=== PATIENT | female | born 1965 | race African-American/Black ===

== ENCOUNTER 2022-01-16 13:17 | Inpatient (IN) ==
[2022-01-16 14:01] LABS: ABG Base Excess -16.6 MMOL/L (-2.5-2.5); ABG HCO3 11.7 MMOL/L (20-26); ABG Oxygen Saturation 96.2 % (95-100); ABG PCO2 22.5 MM HG (35-48); ABG TCO2 9.2 MMOL/L (23-27)
[2022-01-16] MEDS ORDERED: LACTATED RINGERS 1,000 ML IV ONE ×3 (14:21→15:40)
[2022-01-16 14:46] LABS: INR 1.3; PT Patient Result 14.6 SECS (10.5-12.0)
[2022-01-16 15:05] LABS: Albumin 2.4 G/DL (3.4-5.0); Bilirubin,Total 2.9 MG/DL (0.20-1.00); Calcium 9.5 MG/DL (8.5-10.1); Osmolality,Calculated 272.2 MOS/KG (273-304); Potassium 5.5 MMOL/L (3.5-5.1); Total Protein 7.8 G/DL (6.4-8.2)
[2022-01-16 15:11] LABS: Basophils # 0.1 10*3/uL (0.0-0.2); Basophils % 0.2 % (0.0-0.8); Eosinophils # 0.6 10*3/uL (0.0-0.87); Eosinophils % 1.7 % (0.00-10.9); Hematocrit 31.5 VOL% (35.7-47.0); Hemoglobin 8.4 GM/DL (12.0-16.0); Immature Granulocytes % 2.7 %; Lymphocytes # 1.7 10*3/uL (1.4-4.0); Lymphocytes % 5.1 % (21.3-54.2); Mean Corpuscular HGB Conc 26.7 GM/DL (32-36); Mean Corpuscular Volume 71.4 FL (87-102); Monocytes % 5.5 % (1.7-12.7); Neutrophils % 84.8 % (38.7-73.9); Platelet Count 517 T/CUMM (130-400); Red Blood Count 4.41 MC/CUMM (3.8-5.5); Red Cell Distribution Width 21.1 % (9.3-17.3); White Blood Count 33.8 T/CUMM (4-12)
[2022-01-16] MEDS ORDERED: PIPERACILLIN/TAZOBACTAM 3,375 MG in SODIUM CHLORIDE 0.9% 100 ML IV STA (15:12)
[2022-01-16] MEDS ORDERED: VANCOMYCIN INJ 1,250 MG in SODIUM CHLORIDE 0.9% 250 ML IV STA (15:17)
[2022-01-16] MEDS ORDERED: VANCOMYCIN 1,000 MG VIAL ONE (15:24)
[2022-01-16 16:17] LABS: Band Neutrophils 4 % (0-10); Eosinophils 2 % (0-10); Lymphocytes 13 % (20-55); Metamyelocytes 3 %; Nucleated Red Blood Cells 1 (0-5); Segmented Neutrophils 73 % (50-85); Total Cells Counted 100
[2022-01-16 16:18] LABS: Hypochromia 1+; Microcytosis 1+; Schistocytes Slight
[2022-01-16 16:19] LABS: Burr Cells 1+; Platelet Estimate Increased
[2022-01-16] MEDS ORDERED: SODIUM BICARBONATE 10 MEQ/10 ML SYRINGE IV ONE (16:29)
[2022-01-16] MEDS ORDERED: SODIUM BICARBONATE 50 MEQ/50 ML VIAL IV ONE (16:31)
[2022-01-16] MEDS ORDERED: SODIUM CHLORIDE 0.9% 1,000 ML IV STA (16:36)
[2022-01-16] MEDS ORDERED: ALBUTEROL 2.5 MG/3 ML NEB RESP TX PRN (16:55)
[2022-01-16] MEDS ORDERED: ONDANSETRON 4 MG/2 ML VIAL IV PRN (16:57)
[2022-01-16] MEDS ORDERED: ACETAMINOPHEN 325 MG TABLET PO PRN (16:57)
[2022-01-16] MEDS ORDERED: HEPARIN DRIP 25,000 UNITS/500 ML PREMIX IV SCH (17:00)
[2022-01-16] MEDS ORDERED: SODIUM BICARBONATE 50 MEQ/50 ML VIAL IV STA (17:04)
[2022-01-16 18:08] LABS: Bacteria,Urine Few /HPF (Few); Blood, Urine Moderate mg/dL (Negative); Glucose,Urine (UA) Negative (Negative); Hyaline Casts,Urine 178 /LPF (0-3); Ketones,Urine Negative (Negative); Mucus,Urine Occasional /LPF (Occasional); Nitrite,Urine Negative (Negative); Protein,Urine 100 MG/DL; RBC,Urine 29 /HPF (0-4); Squamous Epithelial Cell,Urine Occasional /HPF (0-10); Transitional Epi Cells,Urine Moderate /HPF (<1); Urine Appearance CLOUDY (Clear); Urine Color Amber (Yellow); Urine Specific Gravity 1.021 (1.001-1.035)
[2022-01-16 18:11] LABS: Bilirubin,Urine Small mg/dL (Negative)
[2022-01-16] MEDS: methylPREDNISolone SOD SUC 40 MG/1 ML VIAL IV SCH (18:23)
[2022-01-16] MEDS: PANTOPRAZOLE 40 MG VIAL IV SCH (18:23)
[2022-01-16] MEDS: SODIUM BICARB INJ 150 MEQ in DEXTROSE 5% 1,000 ML IV SCH (18:43)
[2022-01-16 18:47] LABS: Barbiturates Screen,Urine Negative (Negative); Benzodiazepines Screen,Urine Negative (Negative); Cannabinoid Screen,Urine Negative (Negative); Opiate Screen,Urine Negative (Negative); Phencyclidine Screen,Urine Negative (Negative)
[2022-01-16] MEDS: MORPHINE 4 MG/1 ML VIAL IV PRN (18:54)
[2022-01-16] MEDS: ALBUTEROL/IPRATROPIUM 3 ML NEB RESP TX SCH (19:00)
[2022-01-17] MEDS: ALBUTEROL/IPRATROPIUM 3 ML NEB RESP TX SCH ×4 (00:30→19:07)
[2022-01-17] MEDS: methylPREDNISolone SOD SUC 40 MG/1 ML VIAL IV SCH ×3 (01:27→17:03)
[2022-01-17 03:47] LABS: ABG Base Excess -12.2 MMOL/L (-2.5-2.5); ABG HCO3 14.7 MMOL/L (20-26); ABG Oxygen Saturation 98.9 % (95-100); ABG PCO2 29.7 MM HG (35-48); ABG PH 7.272 (7.35-7.45)
[2022-01-17] MEDS: MORPHINE 4 MG/1 ML VIAL IV PRN (04:21)
[2022-01-17] MEDS: PIPERACILLIN/TAZOBACTAM 3,375 MG in SODIUM CHLORIDE 0.9% 100 ML IV SCH ×2 (04:21→16:45)
[2022-01-17] MEDS: SODIUM BICARB INJ 150 MEQ in DEXTROSE 5% 1,000 ML IV SCH ×3 (04:44→22:39)
[2022-01-17 05:08] LABS: Albumin 1.8 G/DL (3.4-5.0); Bilirubin,Total 2.6 MG/DL (0.20-1.00); Calcium 7.6 MG/DL (8.5-10.1); Osmolality,Calculated 286.4 MOS/KG (273-304); Potassium 4.5 MMOL/L (3.5-5.1); Total Protein 6.1 G/DL (6.4-8.2)
[2022-01-17 05:11] LABS: % Iron Saturation 7.9 % (18-50); Ferritin 132.6 ng/mL (8-252)
[2022-01-17 05:16] LABS: Basophils # 0.1 10*3/uL (0.0-0.2); Basophils % 0.1 % (0.0-0.8); Eosinophils # 0.1 10*3/uL (0.0-0.87); Eosinophils % 0.3 % (0.00-10.9); Immature Granulocytes % 0.8 %; Immature Granulocytes Absolute 0.28 #; Lymphocytes # 1.3 10*3/uL (1.4-4.0); Lymphocytes % 3.7 % (21.3-54.2); Mean Corpuscular Volume 70.1 FL (87-102); Mean Platelet Volume 10.6 FL (9.6-12.0); Monocytes % 5.5 % (1.7-12.7); NRBC # 0.07 10*3/uL; Neutrophils % 89.6 % (38.7-73.9); Platelet Count 418 T/CUMM (130-400); Red Blood Count 3.28 MC/CUMM (3.8-5.5); Red Cell Distribution Width 19.9 % (9.3-17.3); White Blood Count 34.9 T/CUMM (4-12)
[2022-01-17 05:19] LABS: Hemoglobin 6.2 GM/DL (12.0-16.0)
[2022-01-17] MEDS ORDERED: SODIUM CHLORIDE 0.9% 1,000 ML IV PRN (05:26)
[2022-01-17 05:28] LABS: Band Neutrophils 12 % (0-10); Eosinophils 1 % (0-10); Hypochromia 2+; Lymphocytes 4 % (20-55); Microcytosis 1+; Platelet Estimate Adequate; Segmented Neutrophils 77 % (50-85); Total Cells Counted 100
[2022-01-17 05:40] LABS: Hepatitis B Surface Ag Quant 0.13 Index; Hepatitis B Surface Ag Result Non-Reactive (NonReactive); Hepatitis C Virus Ab Quant 0.06 Index; Hepatitis C Virus Ab Result Non-Reactive (NonReactive)
[2022-01-17] MEDS ORDERED: CALCIUM CHLORIDE 1,000 MG/10 ML VIAL IV ONE (10:10)
[2022-01-17] MEDS ORDERED: fentaNYL 100 MCG/2 ML VIAL ONE (10:10)
[2022-01-17] MEDS ORDERED: MIDAZOLAM 2 MG/2 ML VIAL ONE ×2 (10:10→11:52)
[2022-01-17] MEDS ORDERED: ROCURONIUM 50 MG/5 ML VIAL IV ONE (10:10)
[2022-01-17] MEDS ORDERED: SUCCINYLCHOLINE 200 MG/10 ML VIAL ONE (10:10)
[2022-01-17] MEDS ORDERED: propofoL 200 MG/20 ML VIAL IV ONE (10:10)
[2022-01-17] MEDS ORDERED: SEVOFLURANE 1 UNIT/15 MINUTE INH ONE (10:10)
[2022-01-17] MEDS ORDERED: ALBUMIN 5% 25.0 GM/500 ML VIAL IV ONE (10:14)
[2022-01-17 16:10] LABS: ABG Base Excess -6.7 MMOL/L (-2.5-2.5); ABG HCO3 22.9 MMOL/L (20-26); ABG PO2 199.6 MM HG (80-95); ABG TCO2 25.1 MMOL/L (23-27); Allen Test Positive; Pt O2 Delivery Device Ventilator
[2022-01-17 16:13] LABS: ABG PCO2 72.1 MM HG (35-48); ABG PH 7.119 (7.35-7.45)
[2022-01-17 16:58] LABS: Calcium 7.6 MG/DL (8.5-10.1); Osmolality,Calculated 288.5 MOS/KG (273-304); Potassium 4.9 MMOL/L (3.5-5.1)
[2022-01-17] MEDS: PANTOPRAZOLE 40 MG VIAL IV SCH (17:02)
[2022-01-17 17:16] LABS: Hematocrit 28.7 VOL% (35.7-47.0); Hemoglobin 8.2 GM/DL (12.0-16.0)
[2022-01-17 17:39] LABS: ABG Base Excess -5.1 MMOL/L (-2.5-2.5); ABG HCO3 20.2 MMOL/L (20-26); ABG PCO2 46.2 MM HG (35-48); ABG PH 7.277 (7.35-7.45); ABG TCO2 20.4 MMOL/L (23-27)
[2022-01-17] MEDS: MIDAZOLAM 100 MG in SODIUM CHLORIDE 0.9% 80 ML IV PRN (20:05)
[2022-01-18] MEDS: ALBUTEROL/IPRATROPIUM 3 ML NEB RESP TX SCH ×4 (00:03→20:40)
[2022-01-18] MEDS: methylPREDNISolone SOD SUC 40 MG/1 ML VIAL IV SCH ×3 (01:19→20:58)
[2022-01-18] MEDS: SODIUM BICARB INJ 150 MEQ in DEXTROSE 5% 1,000 ML IV SCH ×3 (02:30→15:59)
[2022-01-18 03:32] LABS: ABG Base Excess 0.4 MMOL/L (-2.5-2.5); ABG HCO3 24.4 MMOL/L (20-26); ABG Oxygen Saturation 92.4 % (95-100); ABG PCO2 36.5 MM HG (35-48); ABG PH 7.443 (7.35-7.45); ABG PO2 71.8 MM HG (80-95); ABG TCO2 25.5 MMOL/L (23-27)
[2022-01-18 04:08] LABS: Calcium 7.1 MG/DL (8.5-10.1); Osmolality,Calculated 294.4 MOS/KG (273-304); Potassium 4.7 MMOL/L (3.5-5.1)
[2022-01-18 04:17] LABS: Basophils # 0.1 10*3/uL (0.0-0.2); Basophils % 0.3 % (0.0-0.8); Eosinophils # 0.1 10*3/uL (0.0-0.87); Eosinophils % 0.4 % (0.00-10.9); Hemoglobin 7.7 GM/DL (12.0-16.0); Lymphocytes # 1.6 10*3/uL (1.4-4.0); Lymphocytes % 6.3 % (21.3-54.2); Mean Corpuscular HGB Conc 29.6 GM/DL (32-36); Mean Corpuscular Volume 71.8 FL (87-102); Mean Platelet Volume 10.8 FL (9.6-12.0); Monocytes % 7.9 % (1.7-12.7); NRBC # 0.47 10*3/uL; Neutrophils % 81.1 % (38.7-73.9); Platelet Count 268 T/CUMM (130-400); Red Blood Count 3.62 MC/CUMM (3.8-5.5); Red Cell Distribution Width 20.8 % (9.3-17.3); White Blood Count 25.3 T/CUMM (4-12)
[2022-01-18] MEDS: PIPERACILLIN/TAZOBACTAM 3,375 MG in SODIUM CHLORIDE 0.9% 100 ML IV SCH ×2 (04:24→16:15)
[2022-01-18 04:32] LABS: Band Neutrophils 12 % (0-10); Eosinophils 1 % (0-10); Hypochromia 1+; Lymphocytes 5 % (20-55); Microcytosis 1+; Nucleated Red Blood Cells 5 (0-5); Segmented Neutrophils 77 % (50-85); Total Cells Counted 100
[2022-01-18 04:33] LABS: Polychromasia Slight; Target Cells Slight
[2022-01-18 04:34] LABS: Platelet Estimate Normal
[2022-01-18] MEDS ORDERED: SODIUM CHLORIDE 0.9% 1,000 ML IV ONE ×2 (07:53→09:53)
[2022-01-18] MEDS ORDERED: LACTATED RINGERS 1,000 ML IV ONE (07:57)
[2022-01-18] MEDS ORDERED: GLUCAGON 1 MG VIAL IM PRN (09:51)
[2022-01-18] MEDS ORDERED: DEXTROSE 10% 250 ML BAG IV PRN (09:51)
[2022-01-18] MEDS: fentaNYL INJ 1,250 MCG in SODIUM CHLORIDE 0.9% 225 ML IV PRN (10:16)
[2022-01-18] MEDS ORDERED: MORPHINE 4 MG/1 ML VIAL IV PRN (10:18)
[2022-01-18] MEDS: INSULIN REGULAR 100 UNIT/ML SUBCUT SCH ×3 (12:33→23:34)
[2022-01-18 13:09] LABS: Hematocrit 22.6 VOL% (35.7-47.0); Hemoglobin 6.7 GM/DL (12.0-16.0)
[2022-01-18] MEDS: PANTOPRAZOLE 40 MG VIAL IV SCH (16:15)
[2022-01-18 18:40] VITALS: BP 96/66
[2022-01-19] MEDS: SODIUM BICARB INJ 150 MEQ in DEXTROSE 5% 1,000 ML IV SCH ×4 (00:10→20:40)
[2022-01-19] MEDS: ALBUTEROL/IPRATROPIUM 3 ML NEB RESP TX SCH ×4 (00:36→19:15)
[2022-01-19] MEDS: MIDAZOLAM 100 MG in SODIUM CHLORIDE 0.9% 80 ML IV PRN ×2 (03:15→07:22)
[2022-01-19 03:23] LABS: Basophils # 0.1 10*3/uL (0.0-0.2); Basophils % 0.3 % (0.0-0.8); Eosinophils # 0.1 10*3/uL (0.0-0.87); Eosinophils % 0.2 % (0.00-10.9); Hematocrit 28.5 VOL% (35.7-47.0); Hemoglobin 8.9 GM/DL (12.0-16.0); Immature Granulocytes % 7.6 %; Immature Granulocytes Absolute 2.46 #; Lymphocytes # 1.9 10*3/uL (1.4-4.0); Lymphocytes % 5.7 % (21.3-54.2); Mean Corpuscular HGB Conc 31.2 GM/DL (32-36); Mean Corpuscular Volume 74.8 FL (87-102); Monocytes % 9.1 % (1.7-12.7); NRBC # 1.17 10*3/uL; Neutrophils % 77.1 % (38.7-73.9); Platelet Count 165 T/CUMM (130-400); Red Blood Count 3.81 MC/CUMM (3.8-5.5); Red Cell Distribution Width 21.2 % (9.3-17.3); White Blood Count 32.4 T/CUMM (4-12)
[2022-01-19 03:41] LABS: Albumin 1.7 G/DL (3.4-5.0); Bilirubin,Total 5.6 MG/DL (0.20-1.00); Calcium 7.2 MG/DL (8.5-10.1); Osmolality,Calculated 298.4 MOS/KG (273-304); Potassium 4.4 MMOL/L (3.5-5.1); Total Protein 5.5 G/DL (6.4-8.2)
[2022-01-19 03:44] LABS: PT Patient Result 14.9 SECS (10.5-12.0)
[2022-01-19 03:45] LABS: INR 1.4
[2022-01-19 03:50] LABS: Band Neutrophils 4 % (0-10); Hypochromia 1+; Lymphocytes 4 % (20-55); Microcytosis 1+; Nucleated Red Blood Cells 4 (0-5); Platelet Estimate Adequate; Segmented Neutrophils 83 % (50-85); Total Cells Counted 100
[2022-01-19 03:51] LABS: Polychromasia Slight
[2022-01-19 04:05] LABS: ABG HCO3 24.4 MMOL/L (20-26); ABG PCO2 35.2 MM HG (35-48); ABG PH 7.438 (7.35-7.45); ABG PO2 94.6 MM HG (80-95); ABG TCO2 21.8 MMOL/L (23-27)
[2022-01-19] MEDS: PIPERACILLIN/TAZOBACTAM 3,375 MG in SODIUM CHLORIDE 0.9% 100 ML IV SCH ×2 (05:00→15:49)
[2022-01-19] MEDS: INSULIN REGULAR 100 UNIT/ML SUBCUT SCH ×3 (05:33→17:06)
[2022-01-19] MEDS: fentaNYL INJ 1,250 MCG in SODIUM CHLORIDE 0.9% 225 ML IV PRN (07:22)
[2022-01-19] MEDS: methylPREDNISolone SOD SUC 40 MG/1 ML VIAL IV SCH ×2 (08:45→21:01)
[2022-01-19] MEDS ORDERED: SODIUM CHLORIDE 0.9% 1,000 ML IV ONE ×2 (14:11→14:13)
[2022-01-19] MEDS: NOREPINEPHRINE 8 MG in SODIUM CHLORIDE 0.9% 242 ML IV PRN ×2 (15:17→22:38)
[2022-01-19] MEDS: PANTOPRAZOLE 40 MG VIAL IV SCH (16:03)
[2022-01-19 16:10] LABS: ABG Base Excess -11.4 MMOL/L (-2.5-2.5); ABG HCO3 14.6 MMOL/L (20-26); ABG Oxygen Saturation 94.2 % (95-100); ABG PCO2 33.3 MM HG (35-48); ABG TCO2 15.6 MMOL/L (23-27); Allen Test Positive; Pt O2 Delivery Device Ventilator
[2022-01-19 16:26] LABS: Basophils % 0.1 % (0.0-0.8); Eosinophils # 0.1 10*3/uL (0.0-0.87); Eosinophils % 0.1 % (0.00-10.9); Hematocrit 25.8 VOL% (35.7-47.0); Hemoglobin 7.6 GM/DL (12.0-16.0); Immature Granulocytes % 13.8 %; Lymphocytes # 2.4 10*3/uL (1.4-4.0); Lymphocytes % 5.1 % (21.3-54.2); Mean Corpuscular HGB Conc 29.5 GM/DL (32-36); Mean Corpuscular Volume 79.4 FL (87-102); Monocytes % 8.9 % (1.7-12.7); NRBC # 2.11 10*3/uL; Platelet Count 134 T/CUMM (130-400); Red Blood Count 3.25 MC/CUMM (3.8-5.5); Red Cell Distribution Width 21.9 % (9.3-17.3)
[2022-01-19 16:30] LABS: White Blood Count 46.5 T/CUMM (4-12)
[2022-01-19 16:54] LABS: Calcium 6.8 MG/DL (8.5-10.1); Osmolality,Calculated 296.1 MOS/KG (273-304); Potassium 5.2 MMOL/L (3.5-5.1)
[2022-01-19 17:48] LABS: Band Neutrophils 2 % (0-10); Lymphocytes 18 % (20-55); Segmented Neutrophils 79 % (50-85); Total Cells Counted 100
[2022-01-19 17:49] LABS: Atypical Lymphocytes 1+; Hypochromia 1+; Microcytosis Slight; Polychromasia Few; Target Cells Slight; Toxic Granulation 1+
[2022-01-19 17:51] LABS: Nucleated Red Blood Cells 4 (0-5)
[2022-01-19 17:54] LABS: Platelet Estimate Normal
[2022-01-19 22:05] LABS: Basophils # 0.2 10*3/uL (0.0-0.2); Basophils % 0.3 % (0.0-0.8); Eosinophils # 0.1 10*3/uL (0.0-0.87); Eosinophils % 0.1 % (0.00-10.9); Hematocrit 26.2 VOL% (35.7-47.0); Hemoglobin 7.6 GM/DL (12.0-16.0); Immature Granulocytes % 16.1 %; Immature Granulocytes Absolute 8.89 #; Lymphocytes # 3.1 10*3/uL (1.4-4.0); Lymphocytes % 5.6 % (21.3-54.2); Mean Corpuscular Volume 81.6 FL (87-102); Monocytes % 9.7 % (1.7-12.7); NRBC # 3.28 10*3/uL; Neutrophils % 68.2 % (38.7-73.9); Platelet Count 131 T/CUMM (130-400); Red Blood Count 3.21 MC/CUMM (3.8-5.5); Red Cell Distribution Width 22.1 % (9.3-17.3)
[2022-01-19 22:09] LABS: White Blood Count 55.3 T/CUMM (4-12)
[2022-01-19 22:25] LABS: ABG Base Excess -12.7 MMOL/L (-2.5-2.5); ABG HCO3 14.4 MMOL/L (20-26); ABG PCO2 31.5 MM HG (35-48); ABG PH 7.246 (7.35-7.45); ABG PO2 92.6 MM HG (80-95)
[2022-01-19 22:36] LABS: Albumin 1.5 G/DL (3.4-5.0); Bilirubin,Total 6.9 MG/DL (0.20-1.00); Calcium 6.9 MG/DL (8.5-10.1); Osmolality,Calculated 295.2 MOS/KG (273-304); Total Protein 5.3 G/DL (6.4-8.2)
[2022-01-19 22:39] LABS: Potassium 6.2 MMOL/L (3.5-5.1)
[2022-01-19 22:42] LABS: Lymphocytes 11 % (20-55); Nucleated Red Blood Cells 7 (0-5); Segmented Neutrophils 84 % (50-85); Total Cells Counted 100
[2022-01-19 22:44] LABS: Platelet Estimate Adequate; Polychromasia 1+
[2022-01-19] MEDS ORDERED: DEXTROSE 10% 1,000 ML IV SCH (23:00)
[2022-01-19] MEDS ORDERED: INSULIN REGULAR 10 UNIT, CALCIUM GLUCONATE 1,000 MG in DEXTROSE 10% 250 ML IV ONE (23:07)
[2022-01-19] MEDS ORDERED: SODIUM BICARBONATE 50 MEQ/50 ML VIAL IV ONE (23:08)
[2022-01-19] MEDS: HYDROCORTISONE 100 MG VIAL IV SCH (23:46)
[2022-01-20] MEDS: INSULIN REGULAR 100 UNIT/ML SUBCUT SCH ×3 (00:02→12:55)
[2022-01-20] MEDS ORDERED: ACETAMINOPHEN 650 MG SUPP RECTAL PRN (00:05)
[2022-01-20] MEDS: ALBUTEROL/IPRATROPIUM 3 ML NEB RESP TX SCH ×3 (01:03→12:23)
[2022-01-20] MEDS: NOREPINEPHRINE 16 MG in SODIUM CHLORIDE 0.9% 234 ML IV PRN ×3 (01:54→12:35)
[2022-01-20 04:11] LABS: ABG Base Excess -8.7 MMOL/L (-2.5-2.5); ABG HCO3 17.1 MMOL/L (20-26); ABG Oxygen Saturation 86.1 % (95-100); ABG PCO2 36.7 MM HG (35-48); ABG PH 7.287 (7.35-7.45); ABG PO2 60.9 MM HG (80-95); ABG TCO2 18.3 MMOL/L (23-27)
[2022-01-20] MEDS: PIPERACILLIN/TAZOBACTAM 3,375 MG in SODIUM CHLORIDE 0.9% 100 ML IV SCH (04:26)
[2022-01-20 05:06] LABS: Albumin 1.5 G/DL (3.4-5.0); Bilirubin,Total 7.6 MG/DL (0.20-1.00); Calcium 6.8 MG/DL (8.5-10.1); Osmolality,Calculated 295.7 MOS/KG (273-304); Potassium 5.9 MMOL/L (3.5-5.1); Total Protein 4.9 G/DL (6.4-8.2)
[2022-01-20 06:24] LABS: Basophils # 0.2 10*3/uL (0.0-0.2); Basophils % 0.3 % (0.0-0.8); Eosinophils # 0.1 10*3/uL (0.0-0.87); Eosinophils % 0.1 % (0.00-10.9); Hematocrit 23.6 VOL% (35.7-47.0); Immature Granulocytes % 12.4 %; Immature Granulocytes Absolute 7.55 #; Lymphocytes # 3.5 10*3/uL (1.4-4.0); Lymphocytes % 5.8 % (21.3-54.2); Mean Corpuscular HGB Conc 29.7 GM/DL (32-36); Mean Corpuscular Volume 81.1 FL (87-102); NRBC # 3.44 10*3/uL; Neutrophils % 69.4 % (38.7-73.9); Platelet Count 102 T/CUMM (130-400); Red Blood Count 2.91 MC/CUMM (3.8-5.5); Red Cell Distribution Width 22.1 % (9.3-17.3)
[2022-01-20 06:30] LABS: White Blood Count 60.8 T/CUMM (4-12)
[2022-01-20] MEDS: SODIUM BICARB INJ 150 MEQ in DEXTROSE 5% 1,000 ML IV SCH (06:31)
[2022-01-20 06:32] LABS: Band Neutrophils 5 % (0-10); Hypochromia 1+; Lymphocytes 11 % (20-55); Metamyelocytes 1 %; Microcytosis 1+; Myelocytes 1 %; Nucleated Red Blood Cells 8 (0-5); Platelet Estimate Decreased; Segmented Neutrophils 71 % (50-85); Total Cells Counted 100
[2022-01-20] MEDS: HYDROCORTISONE 100 MG VIAL IV SCH (08:30)
[2022-01-20] MEDS ORDERED: SODIUM BICARBONATE 50 MEQ/50 ML VIAL IV ONE ×2 (12:29)
[2022-01-20] MEDS ORDERED: SODIUM BICARBONATE 50 MEQ/50 ML SYRINGE IV ONE (12:32)
[2022-01-20] MEDS ORDERED: EPINEPHrine 1 MG/10 ML SYRINGE IV ONE (12:32)
[2022-01-20] MEDS ORDERED: CALCIUM CHLORIDE 1,000 MG/10 ML SYRINGE IV ONE (12:33)
[2022-01-20] MEDS ORDERED: PHENYLEPHRINE DRIP 40 MG/250 ML PREMIX IV PRN (12:41)
[2022-01-20] MEDS ORDERED: MAGNESIUM SULFATE 1 GM/2 ML VIAL IV ONE (13:00)
[2022-01-20 13:23] LABS: Basophils # 0.1 10*3/uL (0.0-0.2); Basophils % 0.1 % (0.0-0.8); Eosinophils # 0.1 10*3/uL (0.0-0.87); Eosinophils % 0.2 % (0.00-10.9); Hematocrit 22.7 VOL% (35.7-47.0); Immature Granulocytes % 13.6 %; Immature Granulocytes Absolute 7.42 #; Lymphocytes # 3.9 10*3/uL (1.4-4.0); Lymphocytes % 7.2 % (21.3-54.2); Mean Corpuscular HGB Conc 27.8 GM/DL (32-36); Mean Corpuscular Volume 85.7 FL (87-102); Monocytes % 12.2 % (1.7-12.7); NRBC # 6.39 10*3/uL; Neutrophils % 66.7 % (38.7-73.9); Platelet Count 84 T/CUMM (130-400); Red Blood Count 2.65 MC/CUMM (3.8-5.5); Red Cell Distribution Width 22.5 % (9.3-17.3)
[2022-01-20 13:29] LABS: White Blood Count 54.5 T/CUMM (4-12)
[2022-01-20 13:30] LABS: Hemoglobin 6.3 GM/DL (12.0-16.0)
[2022-01-20 13:43] LABS: Hypochromia 2+; Lymphocytes 11 % (20-55); Metamyelocytes 1 %; Myelocytes 1 %; Nucleated Red Blood Cells 29 (0-5); Segmented Neutrophils 80 % (50-85); Total Cells Counted 100
[2022-01-20 13:44] LABS: Burr Cells Few; Polychromasia Slight; Target Cells Few; Tear Drop Cells Few
[2022-01-20 13:45] LABS: Platelet Estimate Adequate
[2022-01-20 14:19] LABS: Albumin 1.2 G/DL (3.4-5.0); Bilirubin,Total 6.9 MG/DL (0.20-1.00); Calcium 7.6 MG/DL (8.5-10.1); Osmolality,Calculated 300.4 MOS/KG (273-304); Total Protein 4.3 G/DL (6.4-8.2)
[2022-01-20 14:22] LABS: Potassium 7.4 MMOL/L (3.5-5.1)
== END 2022-01-20 13:30 | disposition expired | DRG 329 ==
LOC: N.ED 13:17 → N.CC 16:55
PROVIDERS: ADMIT Family Medicine; ATTEND Family Medicine